=== PATIENT | male | born 1970 | race Caucasian/White ===

== ENCOUNTER 2020-04-24 12:16 | Emergency (ER) | payer OTHER ==
[2020-04-24] MEDS ORDERED: ASPIRIN 81 MG TABLET, CHEWABLE PO ONE (13:02)
[2020-04-24] MEDS ORDERED: ONDANSETRON 4 MG TAB.RAPDIS PO ONE (13:03)
--- NOTE | 2020-04-24 13:05 | ER Document Report ---
ED Medical Screen (RME) - General Chief Complaint: Chest Pain Stated Complaint: CHEST PAIN Time Seen by Provider: 04/24/20 12:56 Notes: Patient is a 49-year-old male presents emergency department with a chief complaint of chest pain that started after eating at [employer]. States that it is substernal. Patient has been vomiting since. Exam: S1, S2. Heart rate 74. I have greeted and performed a rapid initial assessment of this patient. A comprehensive ED assessment and evaluation of the patient, analysis of test results and completion of medical decision making process will be conducted by an additional ED providers. Physical Exam - Vital signs Vitals: Temp Pulse Resp BP Pulse Ox 97.3 F 86 18 120/92 H 100 04/24/20 12:56 04/24/20 12:56 04/24/20 12:56 04/24/20 12:56 04/24/20 12:56 Course - Vital Signs Vital signs: Temp Pulse Resp BP Pulse Ox 97.3 F 86 18 120/92 H 100 04/24/20 12:56 04/24/20 12:56 04/24/20 12:56 04/24/20 12:56 04/24/20 12:56
--- NOTE | 2020-04-24 13:27 | EKG REPORT ---
SEVERITY:- NORMAL ECG - SINUS RHYTHM : Confirmed by: Sherry Mckeon MD 24-Apr-2020 13:26:20
--- NOTE | 2020-04-24 13:31 | RADIOLOGY REPORT (SQ) ---
EXAM DESCRIPTION: CHEST 2 VIEWS IMAGES COMPLETED DATE/TIME: 04/24/2020 1:20 pm REASON FOR STUDY: chest pain COMPARISON: None. EXAM PARAMETERS: NUMBER OF VIEWS: two views TECHNIQUE: Digital Frontal and Lateral radiographic views of the chest acquired. RADIATION DOSE: NA LIMITATIONS: none FINDINGS: LUNGS AND PLEURA: No opacities, masses or pneumothorax. No pleural effusion. MEDIASTINUM AND HILAR STRUCTURES: No masses or contour abnormalities. HEART AND VASCULAR STRUCTURES: Heart normal size. No evidence for failure. BONES: No acute findings. HARDWARE: None in the chest. OTHER: No other significant finding. IMPRESSION: NO ACUTE RADIOGRAPHIC FINDING IN THE CHEST. TECHNICAL DOCUMENTATION: JOB ID: [id number] 2010 [employer]- All Rights Reserved Reading location - IP/workstation name: [email or web address]
[2020-04-24 13:44] LABS: ABSOLUTE BASOPHILS # (AUTO) 0.1 10^3/uL (0.0-0.2); ABSOLUTE EOSINOPHILS # (AUTO) 0.4 10^3/uL (0.0-0.6); ABSOLUTE LYMPHOCYTES (AUTO) 2.8 10^3/uL (0.5-4.7); ABSOLUTE MONOCYTES (AUTO) 0.7 10^3/uL (0.1-1.4); ABSOLUTE NEUT (AUTO) 5.1 10^3/uL (1.7-8.2); BASOPHILS % (AUTO) 0.9 % (0-2); EOSINOPHILS % (AUTO) 4.5 % (0-6); HEMATOCRIT 44.6 % (37.9-51.0); LYMPHOCYTES % (AUTO) 30.5 % (13-45); MEAN CORPUSCULAR HEMOGLOBIN 31.5 pg (27.0-33.4); MEAN CORPUSCULAR VOLUME 88 fl (80-97); MONOCYTES % (AUTO) 8.1 % (3-13); PLATELET COUNT 229 10^3/uL (150-450); TOTAL CELLS COUNTED % (AUTO) 100 %; WHITE BLOOD COUNT 9.2 10^3/uL (4.0-10.5)
[2020-04-24 14:02] LABS: ALBUMIN 4.6 g/dL (3.5-5.0); ALKALINE PHOSPHATASE 136 U/L (38-126); ANION GAP 14 (5-19); ASPARTATE AMINO TRANSFERASE 25 U/L (17-59); BILIRUBIN,DIRECT 0.1 mg/dL (0.0-0.4); BILIRUBIN,TOTAL 0.6 mg/dL (0.2-1.3); BLOOD UREA NITROGEN 12 mg/dL (7-20); CARBON DIOXIDE 24 mmol/L (22-30); CHLORIDE 101 mmol/L (98-107); CREATINE KINASE 86 U/L (55-170); GLUCOSE 142 mg/dL (75-110); POTASSIUM 3.4 mmol/L (3.6-5.0); TOTAL PROTEIN 7.7 g/dL (6.3-8.2)
[2020-04-24] MEDS ORDERED: MAG HYDROX/AL HYDROX/SIMETH SUSP 30 ML UDCUP PO ONE ×2 (14:28→18:36)
[2020-04-24] MEDS ORDERED: METOCLOPRAMIDE HCL ORAL SOLN 10 MG/10 ML UDCUP PO ONE (14:28)
[2020-04-24] MEDS ORDERED: LIDOCAINE 2% VISCOUS SOLN 15 ML UDCUP PO ONE (14:28)
[2020-04-24] MEDS ORDERED: ONDANSETRON HCL INJ/PF 4 MG/2 ML SDV IV ONE (16:04)
[2020-04-24] MEDS ORDERED: FAMOTIDINE INJ/PF 20 MG/2 ML SDV IV ONE (16:04)
[2020-04-24] MEDS ORDERED: MORPHINE SULFATE 10 MG/ML INJ IV ONE (16:04)
--- NOTE | 2020-04-24 16:59 | ER Document Report ---
Entered by ISABEL LANGFORD SCRIBE 04/24/20 1559 Acting as scribe for:HEIDI PATEL DO ED General - General Chief Complaint: Chest Pain Stated Complaint: CHEST PAIN Time Seen by Provider: 04/24/20 12:56 Mode of Arrival: Ambulatory Information source: Patient Notes: This 49-year-old male patient presents to the emergency department today with complaints of what he considers chest pain with associated vomiting. Patient reports that he was at [place] [employer] eating he developed pain in his upper abdomen. The patient's boss at bedside mentions that he called his to tell her what was going on with the patient and she told him that he has had this happen before and they have "given him stop to drink that made it better". - Related Data Allergies/Adverse Reactions: No Known Allergies Allergy (Unverified 04/24/20 14:25) Past Medical History - General Information source: Patient - Social History Smoking Status: Current Every Day Smoker Cigarette use (# per day): Yes Frequency of alcohol use: None Drug Abuse: None Lives with: Family Family History: Reviewed & Not Pertinent - Medical History Medical History: Negative Surgical Hx: Negative Review of Systems - Review of Systems Constitutional: No symptoms reported EENT: No symptoms reported Cardiovascular: See HPI, Chest pain Respiratory: No symptoms reported Gastrointestinal: See HPI, Vomiting, Other - hurts to swallow Genitourinary: No symptoms reported Male Genitourinary: No symptoms reported Musculoskeletal: No symptoms reported Skin: No symptoms reported Hematologic/Lymphatic: No symptoms reported Neurological/Psychological: No symptoms reported -: Yes All other systems reviewed and negative Physical Exam - Vital signs Vitals: Temp Pulse Resp BP Pulse Ox 97.3 F 86 18 120/92 H 100 04/24/20 12:56 04/24/20 12:56 04/24/20 12:56 04/24/20 12:56 04/24/20 12:56 - Notes Notes: Physical Exam: General: Alert, appears well. HEENT: Normocephalic. Atraumatic. PERRL. Extraocular movements intact. Oropharynx clear. Neck: Supple. Non-tender. Respiratory: No respiratory distress. Clear and equal breath sounds bilaterally. Cardiovascular: Regular rate and rhythm. Abdominal: Normal Inspection. Non-tender. No distension. Normal Bowel Sounds. Back: No gross abnormalities. Extremities: Moves all four extremities. Upper extremities: Normal inspection. Normal ROM. Lower extremities: Normal inspection. No edema. Normal ROM. Neurological: Normal cognition. AAOx4. Normal speech. Psychological: Slightly anxious. Skin: Warm. Dry. Normal color. Course - Re-evaluation Re-evalutation: 04/24/20 18:40 MDM Anxious 49 year old smoker. He has no cad and history consistent with dyspepsia. Discussed follow up - lives near [place] and has had this same previously per . Eating at [facility] when this began. Will perhaps need EGD in the future. Also should stop smoking. Educated regarding this. - Vital Signs Vital signs: Temp Pulse Resp BP Pulse Ox 97.3 F 86 24 H 134/85 H 97 04/24/20 12:56 04/24/20 12:56 04/24/20 18:01 04/24/20 18:00 04/24/20 18:01 - Laboratory Result Diagrams: 04/24/20 13:24 04/24/20 13:24 Laboratory results interpreted by me: 04/24/20 13:24 Potassium 3.4 L Glucose 142 H Alkaline Phosphatase 136 H Discharge - Discharge Clinical Impression: Dyspepsia Chest pain Qualifiers: Chest pain type: unspecified Qualified Code(s): R07.9 - Chest pain, unspecified Condition: Stable Disposition: HOME, SELF-CARE Instructions: Antacid Therapy ([facility]), Family Physicians / Practices, Prilosec (Acid Pump Inhibitor) ([facility]), Reflux Disease (GERD) ([facility]) Additional Instructions: See your doctor in follow up. Rest. Clear liquids for 24 hours. No fried or spicy foods. Stop smoking. Please return here for chest pain, shortness of breath or other problems or concerns. Your medicine was sent to [facility] in [place]. Prescriptions: Sucralfate [Carafate Susp 1 Gm/10 Ml Udcup] 1 gm PO TID 10 Days #1 bottle Forms: Smoking Cessation Education I personally performed the services described in the documentation, reviewed and edited the documentation which was dictated to the scribe in my presence, and it accurately records my words and actions.
[2020-04-24 19:05] VITALS: BP 142/96
== END 2020-04-24 19:09 | disposition home or self-care (01) ==
LOC: ER 12:16
DX: R10.13 Epigastric pain (principal); R07.9 Chest pain, unspecified; R11.10 Vomiting, unspecified; F17.210 Nicotine dependence, cigarettes, uncomplicated
CPT/HCPCS: 93005; 99285; 96374; 96375; 36415; 82550; 83690; 83735; 85025; 80053; 84484; 85379; 71046; 93010; S0119; J3490; J2270; J2405; S0028